=== PATIENT | female | born 1995 | race Caucasian/White ===

== ENCOUNTER 2017-03-19 18:12 | Emergency (ER) | payer BC ==
[~2017-03-19] VITALS: Ht 170.2 cm; Wt 62.4 kg
[2017-03-19 18:15] VITALS: TEMP 36.8; Ht 170.2 cm; Wt 62.4 kg
[2017-03-19] MEDS ORDERED: SODIUM CHLORIDE 0.9% 1000ML 1,000 ML IV STA (18:22)
[2017-03-19] MEDS ORDERED: ONDANSETRON INJ 2 MG/ML 2 ML VIAL IV STA (18:22)
[2017-03-19] MEDS ORDERED: BCPILLS PO (18:30)
--- NOTE | 2017-03-19 18:43 | EMERGENCY ROOM VISIT NOTE ---
History First contact with patient: 18:17 Chief Complaint: DEHYDRATION Stated Complaint: VOMIT,CHILLS,PAIN History of Present Illness The patient is a 21 year old female who presents to the Emergency Room with complaints of vomiting and dehydration. The patient reports she has had persistent vomiting for the past 18 hours. She does admit to drinking alcohol yesterday and states that the vomiting started last night around midnight after she had been drinking. She has not been able to keep anything down today. She has tried to have some ice chips but states that she vomited this as well. She reports feeling weak and having some abdominal discomfort which she attributes to vomiting. She denies chance of . She denies headache, recent illness, fevers, urinary symptoms or changes in bowel movements. Review of Systems A complete 10 point review of systems was reviewed with the patient with pertinent positives and negatives as per history of present illness. All else were negative. Social History Smoking Status: Never Smoker Alcohol Use: occasionally Marital Status: single Housing Status: lives with roommate Occupation Status: [employer] Current/Historical Medications Scheduled Control Pills ( Control Pills), 1 TAB PO DAILY Physical Exam Vital Signs Date Time Temp Pulse Resp B/P (MAP) Pulse Ox O2 Delivery O2 Flow Rate FiO2 03/19/17 20:50 98 18 118/75 97 03/19/17 20:15 98 18 134/72 98 Room Air 03/19/17 18:15 36.8 128 18 156/85 99 Room Air Physical Exam VITALS: Vitals are noted on the nurse's note and reviewed by myself. Vital signs stable. GENERAL: This is a 21-year-old female, in no acute distress, nondiaphoretic, well-developed well-nourished. SKIN: Capillary reflex less than 2 seconds. HEENT: Normocephalic. PERRLA. TMs pearly rutherford bilaterally. Mucous membranes slightly dry. Neck is supple without nuchal rigidity. HEART: Regular rate and rhythm without murmurs gallops or rubs. LUNGS: Clear to auscultation bilaterally without wheezes, rales or rhonchi. ABDOMEN: Positive bowel sounds x 4. Soft, no tenderness to palpation. NEURO: Patient was alert and oriented to person place and time. Medical Decision & Procedures Laboratory Results 03/19/17 18:34 Red Blood Count 4.38, Mean Corpuscular Volume 91.8, Mean Corpuscular Hemoglobin 31.7, Mean Corpuscular Hemoglobin Concent 34.6, Mean Platelet Volume 9.6, Neutrophils (%) (Auto) 84.9, Lymphocytes (%) (Auto) 11.3, Monocytes (%) (Auto) 3.3, Eosinophils (%) (Auto) 0.1, Basophils (%) (Auto) 0.1, Neutrophils # (Auto) 13.35, Lymphocytes # (Auto) 1.77, Monocytes # (Auto) 0.52, Eosinophils # (Auto) 0.01, Basophils # (Auto) 0.02 03/19/17 18:34 Test 03/19/17 18:34 White Blood Count 15.71 K/uL (4.8-10.8) Red Blood Count 4.38 M/uL (4.2-5.4) Hemoglobin 13.9 g/dL (12.0-16.0) Hematocrit 40.2 % (37-47) Mean Corpuscular Volume 91.8 fL (80-100) Mean Corpuscular Hemoglobin 31.7 pg (25-34) Mean Corpuscular Hemoglobin Concent 34.6 g/dl (32-36) Platelet Count 404 K/uL (130-400) Mean Platelet Volume 9.6 fL (7.4-10.4) Neutrophils (%) (Auto) 84.9 % Lymphocytes (%) (Auto) 11.3 % Monocytes (%) (Auto) 3.3 % Eosinophils (%) (Auto) 0.1 % Basophils (%) (Auto) 0.1 % Neutrophils # (Auto) 13.35 K/uL (1.4-6.5) Lymphocytes # (Auto) 1.77 K/uL (1.2-3.4) Monocytes # (Auto) 0.52 K/uL (0.11-0.59) Eosinophils # (Auto) 0.01 K/uL (0-0.5) Basophils # (Auto) 0.02 K/uL (0-0.2) RDW Standard Deviation 44.3 fL (36.4-46.3) RDW Coefficient of Variation 13.3 % (11.5-14.5) Immature Granulocyte % (Auto) 0.3 % Immature Granulocyte # (Auto) 0.04 K/uL (0.00-0.02) Anion Gap 12.0 mmol/L (3-11) Est Creatinine Clear Calc Drug Dose 86.6 ml/min Estimated GFR () 93.3 Estimated GFR (Non- 80.5 BUN/Creatinine Ratio 9.3 (10-20) Calcium Level 10.0 mg/dl (8.5-10.1) Human Chorionic Gonadotropin, Qual NEG (NEG) Medications Administered Medications (Trade) Dose Ordered Sig/Barbara Route Start Time Stop Time Status Last Admin Dose Admin Sodium Chloride 1,000 ml @ 999 mls/hr Q1H1M STAT IV 03/19/17 18:22 03/19/17 19:22 DC 03/19/17 18:37 999 MLS/HR Ondansetron HCl (Zofran Inj) 4 mg NOW STAT IV 03/19/17 18:22 03/19/17 18:24 DC 03/19/17 18:36 4 MG Ondansetron HCl (ZOFRAN ODT 4MG Home Pack) 1 homepack UD ONCE PO 03/19/17 20:30 03/19/17 20:31 DC 03/19/17 20:48 1 HOMEPACK Medical Decision Differential diagnosis includes vomiting secondary to alcohol use, appendicitis , cholecystitis, , among others. The patient is a 21-year-old female who presents today complaining of vomiting. Abdomen is nontender on exam. Patient does admit to drinking alcohol last night prior to the onset of vomiting. There is nothing to suggest an acute intra-abdominal process. test was negative. Labs did reveal a leukocytosis, likely secondary to vomiting. Patient was treated with IV normal saline solution and Zofran with significant relief. She was able to tolerate fluids. She was given a home pack of Zofran and advised to advance her diet as tolerated. She will follow-up with [facility] services as needed. She verbalized understanding of my assessment and treatment plan and was discharged home in good condition. Medication Reconcilliation Current Medication List: was personally reviewed by me Blood Pressure Screening Patient's blood pressure: Normal blood pressure Impression Primary Impression: Vomiting Departure Information Dispostion Home / Self-Care Condition GOOD Referrals No Doctor, Assigned (PCP) Patient Instructions My [facility] Additional Instructions You have been given Zofran to be used for any nausea or vomiting. Take as prescribed. For pain control, you can use the following [id number] medicines (if >12 yo): - Regular strength (325mg/tab) Tylenol (acetaminophen) 2 tabs every 4-6 hours as needed. Do not exceed 12 tablets in a 24 hour period. Avoid taking more than 4 grams (4000 mg) of Tylenol per day. This includes any other sources of acetaminophen you may take on a regular basis. - Regular strength (200 mg/tab) Advil (ibuprofen) 1-2 tabs every 4-6 hours as needed. Do not exceed a dose of 3200 mg per day. Rest and drink plenty of fluids. Take small sips of water or Gatorade tonight, and advance your diet as tolerated. Follow-up with [facility] as needed. Return to the emergency department with worsening vomiting or other new/concerning symptoms.
[2017-03-19 18:49] LABS: BASO % 0.1 %; BASO ABS # 0.02 K/uL (0-0.2); COMPLETE YES; EOS % 0.1 %; HEMATOCRIT 40.2 % (37-47); IG% 0.3 %; LYMPH % 11.3 %; LYMPH ABS # 1.77 K/uL (1.2-3.4); MEAN CELL VOLUME 91.8 fL (80-100); MEAN CORPUSCULAR HEMOGLOBIN 31.7 pg (25-34); MEAN CORPUSCULAR HGB CONC 34.6 g/dl (32-36); MEAN PLATELET VOLUME 9.6 fL (7.4-10.4); MONO % 3.3 %; NEUT % 84.9 %; PLATELET COUNT 404 K/uL (130-400); RED BLOOD COUNT 4.38 M/uL (4.2-5.4); WHITE BLOOD COUNT 15.71 K/uL (4.8-10.8)
[2017-03-19 19:07] LABS: BUN/CREATININE RATIO 9.3 (10-20); POTASSIUM 3.5 mmol/L (3.5-5.1)
[2017-03-19 19:12] LABS: PREG INTERNAL NEGATIVE QC NEG CLEAR BACKGROUND; PREG INTERNAL POSITIVE QC POS CONTROL LINE
[2017-03-19] MEDS ORDERED: ONDANSETRON HOME PACK 4MG OD TAB PO ONE (20:30)
[2017-03-19 20:50] VITALS: BP 118/75; PULSE 98; O2SAT 97
== END 2017-03-19 20:50 | disposition home or self-care (01) ==
LOC: C.EDB 18:14 → C.EDC 20:50
DX: R11.10 Vomiting, unspecified (principal)